=== PATIENT | female | born 1965 | race Caucasian/White ===

== ENCOUNTER 2016-11-11 19:35 | Emergency (ER) | payer BC ==
[2016-11-11 19:50] VITALS: BP 122/68
--- NOTE | 2016-11-11 19:55 | UC ---
Cardiac HPI - HPI Summary HPI Summary: Chest tightness, radiates to the right arm,started 4 days ago, comes and goes, concerned with possible panic attacks. Light headed with flushed feeling. She has not had anxiety in at least 3 years. Pain is mid chest and goes into right scapula at times. It is pressure like, not sharp. lasts for about 30 mins to several hours. she has pain currently at 3/10. max has gotten to 8-9/10. sx started 7 days ago on/off. she doesnt have any new reasons to have anxiety. She does feel like she gets sweaty/flushed with the sx. Mom was dx'd with heart disease in her 60s, brother in his 50s. She is a smoker starting at 23, now dosen to 1 pack per week. denies being on meds. denies h/o DM, HTN or lipids. denies jaw pain or associated SOB. Pain is not reproducible with palpation. She did do a lot of shoveling this week. - History of Current Complaint Chief Complaint: UCChestPain Stated Complaint: CHEST PAIN Time Seen by Provider: 11/11/16 19:38 - Allergy/Home Medications Allergies/Adverse Reactions: Allergies Allergy/AdvReac Type Severity Reaction Status Date / Time No Known Allergies Allergy Verified 11/11/16 19:50 PMH/Surg Hx/FS Hx/Imm Hx Previously Healthy: Yes - Surgical History Surgical History: Yes Surgery Procedure, Year, and Place: 1986 & 1989 CSECTIONS X , [place]. 1993 REPLACED CHIPPED DISC IN NECK WITH PORTION OF HIP BONE, [place]. [place] [facility] [place] for basal cell. fx wrist - Family History Known Family History: Positive: Cardiac Disease - Mom in 60s, brother in 50s. - Social History Alcohol Use: Weekly Alcohol Amount: WEEKENDS Substance Use Type: None Smoking Status (MU): Light Every Day Tobacco Smoker Type: Cigarettes Amount Used/How Often: 2 cigarettes daily Length of Time of Smoking/Using Tobacco: 2 YEARS Have You Smoked in the Last Year: Yes Review of Systems Constitutional: Negative Skin: Negative Eyes: Negative ENT: Negative Respiratory: Negative Cardiovascular: Chest Pain Gastrointestinal: Negative Genitourinary: Negative Motor: Negative Neurovascular: Negative Musculoskeletal: Negative Neurological: Negative Psychological: Negative All Other Systems Reviewed And Are Negative: Yes Physical Exam Triage Information Reviewed: Yes Appearance: Well-Appearing, No Pain Distress - she is holding her hand over her chest wall several times during the encounter., Well-Nourished - does not appear to be anxious. Vital Signs: Initial Vital Signs Temp 98.7 F 11/11/16 19:40 Pulse 75 11/11/16 19:40 Resp 16 11/11/16 19:40 BP 122/68 11/11/16 19:40 Pulse Ox 99 11/11/16 19:40 Vital Signs Reviewed: Yes Eye Exam: Normal ENT Exam: Normal ENT: Positive: Pharynx normal, TMs normal. Negative: Pharyngeal erythema, Nasal drainage, Tonsillar swelling, Tonsillar exudate Dental Exam: Normal Neck exam: Normal Neck: Positive: Supple, Nontender, No Lymphadenopathy Respiratory Exam: Normal Respiratory: Positive: Lungs clear, Normal breath sounds, No respiratory distress, No accessory muscle use Cardiovascular Exam: Normal Cardiovascular: Positive: RRR, No Murmur, Pulses Normal, Brisk Capillary Refill , Other: - chest wall and back are not tender, pain is not reproducible. Abdominal Exam: Normal Abdomen Description: Positive: Nontender, Soft Musculoskeletal Exam: Normal Neurological Exam: Normal Psychological Exam: Normal Skin Exam: Normal - Assessment/Plan Course Of Treatment: declines ambulance and understands risks of significant cardiac event without apporpriate measures for resuscitation, permanent disability and . She understands by driving herself that she is putting others at risk if she were to have a cardiac event while driving. Her nurse friend agrees to pick hetr up from here. She is instructed to go directly to the ER and to not make any stops. She understood me well and is very agreeable with this plan. Her friend Maria Del Rosario and Maria Del Rosario's have come to pick her up to take her to the hospital. EKG - NSR. nml axis, no AV/IV changes, no ST T changes. no previous to compare. - Differential Diagnoses - Chest Pain Differential Diagnosis/HQI/PQRI: Acute WA, ACS, Angina, Aortic Aneurysm, Chest Wall, Pulmonary Embolism - Clinical Impression Provider Diagnoses: chest pain - Physician Notifications Discussed Patient Care With: Rose ACOSTA at [facility]. Discussed case and reassured that I detailed her on events of significant cardiac event and en route by refusing ambulance. Time Discussed With Above Provider: 20:05 Discharge - Discharge Plan Condition: Fair Disposition: TRANS HIGHER LVL OF CARE FAC
== END 2016-11-11 20:16 | disposition short-term general hospital (02) ==
LOC: UCCORT 19:35
DX: R07.89 Other chest pain (principal); R42 Dizziness and giddiness; F17.210 Nicotine dependence, cigarettes, uncomplicated
CPT/HCPCS: 93005; 99212; G0463

== ENCOUNTER 2016-11-19 19:21 | Emergency (ER) | payer BC ==
[2016-11-19] MEDS ORDERED: Aspirin Low Dose CHEW TAB* 81 MG PO ONE (20:06)
[2016-11-19 20:23] LABS: Hematocrit 42 % (35-47); Hemoglobin 13.9 g/dl (12.0-16.0); Mean Corpuscular HGB Conc 33 g/dl (31-36); Mean Corpuscular Hemoglobin 31 pg (27-31); Mean Corpuscular Volume 92 fL (80-97); Mean Platelet Volume 8 um3 (7.4-10.4); Red Blood Count 4.53 10^6/ul (4.0-5.4); Red Cell Distribution Width 14 % (10.5-15); White Blood Count 7.8 10^3/ul (3.5-10.8)
--- NOTE | 2016-11-19 20:25 | ED ---
Chan Ware Michael, scribed for Ray Medina MD on 11/19/16 at 2013 . HPI Chest Pain - HPI Summary HPI Summary: 51 female comes to the ED presenting with intermittent episodes of CP that started one week ago. The pt reports that she went to [facility] in [place] and her EKG was normal. The pt states that the CP worsened during the week, but she believes it might be anxiety because her daughter is in [place]. The CP is described as sharp and radiates to the LUE, left shoulder and neck. The pain is not aggravated by deep breathes, and currently the pain has slightly alleviated with Motrin. The pt also c/o diaphoresis throughout the day , and she denies fevers and coughing. She smokes one pack per week. - History of Current Complaint Chief Complaint: EDChestPainROMI Time Seen by Provider: 11/19/16 20:01 Hx Obtained From: Patient, Medical Records Onset/Duration: Started Weeks Ago, Still Present Timing: Intermittent Initial Severity: Mild Current Severity: Moderate Pain Intensity: 7 Pain Scale Used: 0-10 Numeric Chest Pain Location: Diffuse Chest Pain Radiates: Yes Chest Pain Radiates To:: Shoulder, Arm, Neck Character: Sharp/Stabbing Aggravating Factor(s): Nothing Alleviating Factor(s): OTC Meds Associated Signs and Symptoms: Positive: Chest Pain, Diaphoresis. Negative: Fever, Cough - Allergy/Home Medications Allergies/Adverse Reactions: Allergies Allergy/AdvReac Type Severity Reaction Status Date / Time No Known Allergies Allergy Verified 11/11/16 19:50 PMH/Surg Hx/FS Hx/Imm Hx Sensory History: Reports: Hx Contacts or Glasses - READING GLASSES Denies: Hx Hearing Aid Opthamlomology History: Reports: Hx Contacts or Glasses - READING GLASSES - Cancer History Cancer Type, Location and Year: basal cell on chin - Surgical History Surgery Procedure, Year, and Place: 1986 & 1989 CSECTIONS X 2, [facility] [place]. 1993 REPLACED CHIPPED DISC IN NECK WITH PORTION OF HIP BONE, [place]. 2004 BILATERAL BREAST IMPLANTS, [facility]. chin for basal cell. fx wrist Hx Anesthesia Reactions: No Infectious Disease History: No Infectious Disease History: Denies: Traveled Outside the [place] in Last 30 Days - Family History Known Family History: Positive: Cardiac Disease - Mom in 60s, brother in 50s. - Social History Occupation: Employed Full-time Lives: Alone Alcohol Use: Weekly Alcohol Amount: WEEKENDS Substance Use Type: Reports: None Smoking Status (MU): Light Every Day Tobacco Smoker Type: Cigarettes Amount Used/How Often: 2 cigarettes daily Length of Time of Smoking/Using Tobacco: 2 YEARS Have You Smoked in the Last Year: Yes Review of Systems Positive: Skin Diaphoresis. Negative: Fever Positive: Chest Pain Negative: Cough All Other Systems Reviewed And Are Negative: Yes Physical Exam Triage Information Reviewed: Yes Vital Signs On Initial Exam: Initial Vitals Temp Pulse Resp BP Pulse Ox 98.0 F 82 16 132/91 100 11/19/16 19:25 11/19/16 19:25 11/19/16 19:25 11/19/16 19:25 11/19/16 19:25 Vital Signs Reviewed: Yes Appearance: Positive: Well-Appearing, No Pain Distress - anxious Skin: Positive: Warm Head/Face: Positive: Normal Head/Face Inspection Eyes: Positive: BLANCA ENT: Positive: Hearing grossly normal Neck: Positive: Supple Respiratory/Lung Sounds: Positive: Clear to Auscultation, Breath Sounds Present Cardiovascular: Positive: RRR Abdomen Description: Positive: Nontender, Soft Bowel Sounds: Positive: Present Musculoskeletal: Positive: Strength/ROM Intact Neurological: Positive: Sensory/Motor Intact, Alert, Oriented to Person Place, Time, Normal Gait Psychiatric: Positive: Affect/Mood Appropriate Diagnostics - Vital Signs Vital Signs Temp Pulse Resp BP Pulse Ox 11/19/16 20:00 70 12 99 11/19/16 19:58 124/61 11/19/16 19:25 98.0 F 82 16 132/91 100 - Laboratory Result Diagrams: 11/19/16 20:15 11/19/16 20:15 Lab Statement: Any lab studies that have been ordered have been reviewed, and results considered in the medical decision making process. - Radiology CXR Xray Interpretation: No Acute Changes Radiology Interpretation Completed By: Radiologist - EKG EKG 1934 EKG Rhythm: Sinus Rhythm - [address] Segment: Normal Ectopy: None Re-Evaluation - Re-Evaluation First Eval Change: Improved - results d/w pt Chest Pain Course/Dx - Diagnoses Provider Diagnoses: Chest pain Discharge - Discharge Plan Condition: Stable Disposition: HOME Patient Education Materials: Chest Pain (ED) Referrals: Bakari Burdick MD [Primary Care Provider] - Additional Instructions: Please follow up with Dr. Burdick within the next week. Return to the ED if your symptoms worsen. The documentation as recorded by the Chan vaz Michael accurately reflects the service I personally performed and the decisions made by me, Ray Medina MD.
[2016-11-19 20:39] LABS: Albumin 4.2 g/dL (3.2-5.2); BUN/Creatinine Ratio 34.6 (8-20); Calcium 9.5 mg/dL (8.6-10.3); EGFR African American 95.1 (>60); Globulin 2.9 g/dL (2-4); Total Bilirubin 0.2 mg/dL (0.2-1.0); Total Protein 7.1 g/dL (6.4-8.9)
--- NOTE | 2016-11-19 20:48 | RAD ---
HISTORY: Chest pain COMPARISONS: None VIEWS: 2: Frontal dual-energy and lateral views of the chest. FINDINGS: CARDIOMEDIASTINAL SILHOUETTE: The cardiomediastinal silhouette is normal. ARMOND: The armond are normal. PLEURA: The costophrenic angles are sharp. No pleural abnormalities are noted. LUNG PARENCHYMA: The lungs are clear. ABDOMEN: The upper abdomen is clear. There is no subphrenic gas. BONES AND SOFT TISSUES: No bone or soft tissue abnormalities are noted. The patient is status post bilateral breast augmentation OTHER: None. IMPRESSION: NO ACTIVE CARDIOPULMONARY DISEASE.
[2016-11-19 21:15] VITALS: BP 105/91
== END 2016-11-19 22:00 | disposition home or self-care (01) ==
LOC: ED 19:21
DX: R07.9 Chest pain, unspecified (principal); R61 Generalized hyperhidrosis; F17.210 Nicotine dependence, cigarettes, uncomplicated
CPT/HCPCS: 36415; 71020; 80053; 83605; 84484; 85025; 93005; 99282

== ENCOUNTER 2018-01-09 09:40 | Emergency (ER) | payer BC ==
[2018-01-09 09:55] VITALS: BP 107/68
--- NOTE | 2018-01-09 10:13 | UC ---
Complaint Female HPI - HPI Summary HPI Summary: dysuria x 1 day + frequency , no fever, no chills, no flank pain - History Of Current Complaint Chief Complaint: UCGU Stated Complaint: URINARY COMPLAINT Time Seen by Provider: 01/09/18 10:06 Hx Obtained From: Patient Hx Last Menstrual Period: manuel ?: No Onset/Duration: Gradual Onset, Lasting Days - 1, Still Present Timing: Constant Severity Initially: Moderate Severity Currently: Moderate Pain Intensity: 0 Character: Burning Aggravating Factor(s): Urination Alleviating Factor(s): Nothing Associated Signs And Symptoms: Negative: Fever, Back Pain, Vaginal Bleeding/ Discharge, Vaginal Discharge, Nausea, Vomiting(# Of Episodes =), Genital Swelling, Genital Blisters, Retained Foregin Body (Specify) - Allergies/Home Medications Allergies/Adverse Reactions: Allergies Allergy/AdvReac Type Severity Reaction Status Date / Time No Known Allergies Allergy Verified 01/09/18 09:56 PMH/Surg Hx/FS Hx/Imm Hx Previously Healthy: Yes - Surgical History Surgical History: Yes Surgery Procedure, Year, and Place: 1986 & 1989 CSECTIONS X 2, [place]. 1993 REPLACED CHIPPED DISC IN NECK WITH PORTION OF HIP BONE, [place]. 2005 BILATERAL BREAST IMPLANTS, [facility]. chin for basal cell. fx wrist - Family History Known Family History: Positive: None, Cardiac Disease - Mom in 60s, brother in 50s. - Social History Alcohol Use: Weekly Alcohol Amount: WEEKENDS Substance Use Type: None Smoking Status (MU): Light Every Day Tobacco Smoker Type: Cigarettes Amount Used/How Often: 2 cigarettes daily Length of Time of Smoking/Using Tobacco: 2 YEARS Have You Smoked in the Last Year: Yes Review of Systems Constitutional: Negative Skin: Negative Eyes: Negative ENT: Negative Respiratory: Negative Cardiovascular: Negative Genitourinary: Dysuria, Frequency, Urgency Motor: Negative Neurovascular: Negative Is Patient Immunocompromised?: No All Other Systems Reviewed And Are Negative: Yes Physical Exam Triage Information Reviewed: Yes Appearance: Well-Appearing, No Pain Distress, Well-Nourished Vital Signs: Initial Vital Signs Temp 98.3 F 01/09/18 09:50 Pulse 82 01/09/18 09:50 Resp 18 01/09/18 09:50 BP 107/68 01/09/18 09:50 Pulse Ox 100 01/09/18 09:50 Vital Signs Reviewed: Yes Eye Exam: Normal Eyes: Positive: Conjunctiva Clear ENT: Positive: Normal ENT inspection, Hearing grossly normal, Pharynx normal Neck: Positive: Supple, Nontender, No Lymphadenopathy Respiratory: Positive: Chest non-tender, Lungs clear, Normal breath sounds Cardiovascular: Positive: RRR, No Murmur, Pulses Normal Abdomen Description: Positive: Nontender, Soft. Negative: CVA Tenderness (R), CVA Tenderness (L), Distended, Guarding Bowel Sounds: Positive: Present Skin Exam: Normal Complaint Female Dx - Differential Dx/Diagnosis Provider Diagnoses: UTI Discharge - Sign-Out/Discharge Documenting (check all that apply): Discharge/Admit/Transfer - Discharge Plan Condition: Stable Disposition: HOME Prescriptions: Fluconazole [Diflucan 150 MG (NF)] 150 mg PO ONCE #1 tab Phenazopyridine 200 mg (NF) [Pyridium 200 MG tab *] 200 mg PO TID #6 tab Sulfamethox/Trimethoprim DS* [Bactrim DS 800/160 TAB*] 1 tab PO BID #14 tab Patient Education Materials: Urinary Tract Infection in Women (DC) Referrals: Bakari Burdick MD [Primary Care Provider] - If Needed - Billing Disposition and Condition Condition: STABLE Disposition: HOME
--- NOTE | 2018-01-11 07:19 | UC ---
- Progress Note Progress Note: urine + citrobacter on Bactrim await sensitivity - no change 01/11/2018 7:20 lj Discharge - Sign-Out/Discharge Documenting (check all that apply): Post-Discharge Follow Up - Discharge Plan Condition: Stable Disposition: HOME Prescriptions: Fluconazole [Diflucan 150 MG (NF)] 150 mg PO ONCE #1 tab Phenazopyridine 200 mg (NF) [Pyridium 200 MG tab *] 200 mg PO TID #6 tab Sulfamethox/Trimethoprim DS* [Bactrim DS 800/160 TAB*] 1 tab PO BID #14 tab Patient Education Materials: Urinary Tract Infection in Women (DC) Referrals: Gennaro ROSALES,Bakari [Primary Care Provider] - If Needed - Billing Disposition and Condition Condition: STABLE Disposition: HOME
== END 2018-01-09 10:14 | disposition home or self-care (01) ==
LOC: UCCORT 09:40
DX: N39.0 Urinary tract infection, site not specified (principal); B96.89 Other specified bacterial agents as the cause of diseases classified elsewhere; F17.210 Nicotine dependence, cigarettes, uncomplicated
CPT/HCPCS: 81003; 87077; 87086; 87186; 99212; G0463

== ENCOUNTER 2018-04-08 10:46 | Emergency (ER) | payer BC ==
[2018-04-08 11:04] VITALS: BP 111/62
--- NOTE | 2018-04-08 11:36 | UC ---
UC General HPI - HPI Summary HPI Summary: Pt presents with c/o generalized malaise, diarrhea X 3 days that has since resolved., low back pain, that has since resolved and generalized fatigue and "feeling terrible". Pt traveled out of state 2 weeks ago and states she did not "eat her usual diet" and did not feel well when she returned home. Denies recent weight loss or night sweats. - History of Current Complaint Chief Complaint: UCBackPain Stated Complaint: LOWER BACK PAIN Time Seen by Provider: 04/08/18 11:03 Hx Obtained From: Patient Hx Last Menstrual Period: manuel Onset/Duration: Gradual Onset, Lasting Days, Resolved - diarrhea resolved Timing: Constant Onset Severity: Moderate Current Severity: Mild Pain Intensity: 3 Associated Signs & Symptoms: Positive: Back Pain, Diarrhea, Other - fatigue - Allergy/Home Medications Allergies/Adverse Reactions: Allergies Allergy/AdvReac Type Severity Reaction Status Date / Time No Known Allergies Allergy Verified 04/08/18 11:00 Home Medications: Home Medications Ibuprofen TAB* [Advil TAB*] 400 mg PO Q6H PRN 04/08/18 [History Confirmed ] PMH/Surg Hx/FS Hx/Imm Hx Previously Healthy: Yes - Surgical History Surgical History: Yes Surgery Procedure, Year, and Place: 1986 & 1989 CSECTIONS X 2, [place]. 1993 REPLACED CHIPPED DISC IN NECK WITH PORTION OF HIP BONE, [place]. 2004 BILATERAL BREAST IMPLANTS, [facility]. chin for basal cell. fx wrist - Family History Known Family History: Positive: Cardiac Disease - Mom in 60s, brother in 50s. - Social History Occupation: Employed Full-time Lives: Alone Alcohol Use: Weekly Alcohol Amount: WEEKENDS Substance Use Type: None Smoking Status (MU): Light Every Day Tobacco Smoker Type: Cigarettes Amount Used/How Often: 2-3 cigarettes/weekly Length of Time of Smoking/Using Tobacco: On and Off Since 2007 Have You Smoked in the Last Year: Yes Review of Systems Constitutional: Fatigue Skin: Negative Eyes: Negative ENT: Negative Respiratory: Negative Cardiovascular: Negative Gastrointestinal: Diarrhea - resolved Genitourinary: Negative Motor: Negative Neurovascular: Negative Musculoskeletal: Myalgia Neurological: Negative Psychological: Negative Is Patient Immunocompromised?: No All Other Systems Reviewed And Are Negative: Yes Physical Exam Triage Information Reviewed: Yes Appearance: Well-Appearing Vital Signs: Initial Vital Signs Temp 98.1 F 04/08/18 10:57 Pulse 72 04/08/18 10:57 Resp 16 04/08/18 10:57 BP 111/62 04/08/18 10:57 Pulse Ox 99 04/08/18 10:57 Vital Signs Reviewed: Yes Eye Exam: Normal ENT Exam: Normal Dental Exam: Normal Neck exam: Normal Respiratory Exam: Normal Cardiovascular Exam: Normal Abdominal Exam: Normal Abdomen Description: Positive: Nontender, No Organomegaly, Soft Musculoskeletal Exam: Normal Neurological Exam: Normal Psychological Exam: Normal Skin Exam: Normal Course/Dx - Course Course Of Treatment: I discussed with the pt the need to follow up with her PCP or return to clinic if symptoms do not improve or resolve. Pt verbalized understanding and agreed to plan of care. - Differential Dx - Multi-Symptom Differential Diagnoses: Urinary Tract Infection Provider Diagnoses: viral syndrome. fatigue Discharge - Sign-Out/Discharge Documenting (check all that apply): Patient Departure - Discharge Plan Condition: Stable Disposition: HOME Patient Education Materials: Viral Syndrome (ED), Fatigue (ED) Referrals: Bakari Burdick MD [Primary Care Provider] - As Soon As Possible - Billing Disposition and Condition Condition: STABLE Disposition: Home
== END 2018-04-08 11:32 | disposition home or self-care (01) ==
LOC: UCCORT 10:46
DX: B34.9 Viral infection, unspecified (principal); R53.83 Other fatigue; F17.210 Nicotine dependence, cigarettes, uncomplicated
CPT/HCPCS: 81003; 87086; 99211; G0463

== ENCOUNTER 2018-06-13 17:37 | Emergency (ER) | payer BC ==
[2018-06-13 18:31] VITALS: BP 136/89
--- NOTE | 2018-06-13 18:54 | UC ---
Skin Complaint HPI - HPI Summary HPI Summary: 52 y/o female presents to the urgent care c/o c/o a red, itchy rash on her abdomen and back since 06/11/18. She states that she feels the rash is now going down both arms. Denies fever or any new symptoms. She also denies any new soaps, lotions, medications or foods. - History of Current Complaint Chief Complaint: UCRas Time Seen by Provider: 06/13/18 18:52 Stated Complaint: SKIN COMPLAINT Hx Obtained From: Patient Hx Last Menstrual Period: manuel Onset/Duration: Gradual Onset, Lasting Days - 3 days, Still Present, Worse Since - today spreading to B/L arms Skin Exposure Onset/Duration: Days Ago - 3 days Timing: Constant Onset Severity: Mild Current Severity: Moderate Pain Intensity: 0 Pain Scale Used: 0-10 Numeric Location: Discrete - abdomen , back and B/L arms Character: Pruritus, Redness Aggravating Factor(s): Touch Alleviating Factor(s): OTC Meds - benadryl Associated Signs & Symptoms: Positive: Rash. Negative: Difficulty Breathing, Fever, Chills, Hoarseness, Throat Tightening, Drainage, Tenderness Related History: Possible Reaction to: Environmental Exposure - Allergy/Home Medications Allergies/Adverse Reactions: Allergies Allergy/AdvReac Type Severity Reaction Status Date / Time No Known Allergies Allergy Verified 06/13/18 18:31 Home Medications: Home Medications diphenhydrAMINE HCl [Benadryl Allergy 25 MG CAP] 50 mg PO BID PRN 06/13/18 [ History Confirmed 06/13/18] Review of Systems Constitutional: Negative Skin: Rash - red rash in the abdomen, back and B/L arms w/ itchiness Eyes: Negative ENT: Negative Respiratory: Negative Cardiovascular: Negative Gastrointestinal: Negative Genitourinary: Negative Motor: Negative Neurovascular: Negative Musculoskeletal: Negative Neurological: Negative Psychological: Negative Is Patient Immunocompromised?: No All Other Systems Reviewed And Are Negative: Yes PMH/Surg Hx/FS Hx/Imm Hx Previously Healthy: Yes - Pt denies PMHX - Surgical History Surgical History: Yes Surgery Procedure, Year, and Place: 1986 & 1989 CSECTIONS X 2, [place]. 1993 REPLACED CHIPPED DISC IN NECK WITH PORTION OF HIP BONE, [place]. 2005 BILATERAL BREAST IMPLANTS, [facility]. chin for basal cell. fx wrist - Family History Known Family History: Positive: Cardiac Disease - Mom in 60s, brother in 50s., Hypertension, Diabetes - Social History Occupation: Employed Full-time Lives: With Family Alcohol Use: Weekly Alcohol Amount: WEEKENDS Substance Use Type: None Smoking Status (MU): Light Every Day Tobacco Smoker Type: Cigarettes Amount Used/How Often: 1 week Length of Time of Smoking/Using Tobacco: since age 28 Have You Smoked in the Last Year: Yes Physical Exam - Summary Physical Exam Summary: Vital Signs Reviewed: Yes General: well developed, well nourished female sitting in the examining table w/ o any apparent distress. Eyes: Positive: Conjunctiva Clear - PERRLA, EOMI ENT: Positive: Normal ENT inspection, Hearing grossly normal, Pharynx normal, TMs normal Neck: Positive: Supple, Nontender, No Lymphadenopathy Respiratory: Positive: Chest nontender, Lungs clear, Normal breath sounds Cardiovascular: Positive: RRR, No Murmur, Pulses Normal Abdomen Description: Positive: Nontender, No Organomegaly, Soft. Negative: CVA Tenderness (R), CVA Tenderness (L) Bowel Sounds: Positive: Present Musculoskeletal: Positive: Strength Intact, ROM Intact, No Edema Neurological Exam: Normal Psychological Exam: Normal Skin: Positive: rashes - Scattered discrete erythemathous maculopapular eruption in the abdomen, back and B/L arms, non tender to palpation, no swelling , w/ indistinct borders, no warm to touch, Triage Information Reviewed: Yes Vital Signs: Initial Vital Signs Temp 98.3 F 06/13/18 18:22 Pulse 78 06/13/18 18:22 Resp 16 06/13/18 18:22 BP 136/89 06/13/18 18:22 Pulse Ox 99 06/13/18 18:22 Course/Dx - Differential Diagnoses - Skin Complaint Differential Diagnoses: Abscess, Allergic Reaction, Contact Dermatitis, Local Allergic Reaction, Poison Aliya, Poison Smilax - Diagnoses Provider Diagnoses: 1- Contac dermatitis. 2- Pruritus Discharge - Sign-Out/Discharge Documenting (check all that apply): Patient Departure - D/C home All imaging exams completed and their final reports reviewed: No Studies - Discharge Plan Condition: Stable Disposition: HOME Prescriptions: Calamine/Pramoxine LOTION* [Caladryl LOTION*] 1 applic .SEE ORDER BID #1 btl Hydrocortisone 1% CREAM* [Hytone Cream 1%*] 1 applic TOPICAL BID #1 tube predniSONE TAB* [Deltasone 20 MG TAB*] 20 mg PO DAILY #8 tab Patient Education Materials: Contact Dermatitis (ED) Referrals: Bakari Burdick MD [Primary Care Provider] - 2 Days Mary Jane Laurent [Medical Doctor] - If Needed Additional Instructions: 1-Please Start taking Prednisone PO taper dose starting tomorrow. first loading dose given today at the clinic. 2- Continue taking Benadryl PO to alleviate itchiness. Apply topical cream as directed. Avoid exposure to the sun. 3-If symptoms do not improve or worsen please f/u with your PCP or Web Applications Architect in 2-3 days for further evaluation and treatment. 4- If symptoms worsen and you develop SOB or difficulty breathing please go immediately to the ER for further management. - Billing Disposition and Condition Condition: STABLE Disposition: Home
[2018-06-13] MEDS ORDERED: predniSONE TAB* 20 MG PO ONE (19:07)
== END 2018-06-13 19:35 | disposition home or self-care (01) ==
LOC: UCCORT 17:37
DX: L29.9 Pruritus, unspecified (principal); L25.9 Unspecified contact dermatitis, unspecified cause
CPT/HCPCS: 99212; G0463; J7512

== ENCOUNTER 2018-06-14 10:30 | Emergency (ER) | payer BC ==
[2018-06-14 11:22] VITALS: BP 108/66
--- NOTE | 2018-06-14 11:55 | UC ---
Throat Pain/Nasal Dougie HPI - HPI Summary HPI Summary: Pt c/o sudden onset of sore throat, nasa congestion and generalized malaise. Pt states that she woke this morning with PND and "extremely sore throat". Pt was seen here last night for sudden on set of urticaria and began prednisone last night. - History of Current Complaint Chief Complaint: UCRespiratory Stated Complaint: RECHECK SORE THROAT, CONGESTION Time Seen by Provider: 06/14/18 11:24 Hx Obtained From: Patient Hx Last Menstrual Period: manuel ?: No Onset/Duration: Sudden Onset, Lasting Hours, Still Present Severity: Moderate Pain Intensity: 3 Cough: None Associated Signs & Symptoms: Positive: Dysphagia - Epiglottits Risk Factors Epiglottis Risk Factors: Sudden Onset - Allergies/Home Medications Allergies/Adverse Reactions: Allergies Allergy/AdvReac Type Severity Reaction Status Date / Time No Known Allergies Allergy Verified 06/14/18 11:15 PMH/Surg Hx/FS Hx/Imm Hx Previously Healthy: Yes - Surgical History Surgical History: Yes Surgery Procedure, Year, and Place: 1986 & 1989 CSECTIONS X 2, [place]. 1993 REPLACED CHIPPED DISC IN NECK WITH PORTION OF HIP BONE, [place]. 2004 BILATERAL BREAST IMPLANTS, [facility]. chin for basal cell. fx wrist - Family History Known Family History: Positive: Cardiac Disease - Mom in 60s, brother in 50s., Hypertension, Diabetes - Social History Occupation: Employed Full-time Lives: With Family Alcohol Use: Weekly Alcohol Amount: WEEKENDS Substance Use Type: None Smoking Status (MU): Light Every Day Tobacco Smoker Type: Cigarettes Amount Used/How Often: 1 week Length of Time of Smoking/Using Tobacco: since age 28 Have You Smoked in the Last Year: Yes Review of Systems Constitutional: Fatigue Skin: Negative Eyes: Negative ENT: Sore Throat Respiratory: Negative Cardiovascular: Negative Gastrointestinal: Negative Genitourinary: Negative Motor: Negative Neurovascular: Negative Musculoskeletal: Negative Neurological: Negative Psychological: Negative Is Patient Immunocompromised?: No All Other Systems Reviewed And Are Negative: Yes Physical Exam Triage Information Reviewed: Yes Appearance: Ill-Appearing Vital Signs: Initial Vital Signs Temp 98.8 F 06/14/18 11:17 Pulse 70 06/14/18 11:17 Resp 18 06/14/18 11:17 BP 108/66 06/14/18 11:17 Pulse Ox 99 06/14/18 11:17 Vital Signs Reviewed: Yes Eye Exam: Normal ENT: Positive: Pharyngeal erythema, Nasal drainage, Tonsillar swelling Dental Exam: Normal Neck exam: Normal Respiratory Exam: Normal Cardiovascular Exam: Normal Musculoskeletal Exam: Normal Neurological Exam: Normal Psychological Exam: Normal Skin Exam: Normal Throat Pain/Nasal Course/Dx - Differential Dx/Diagnosis Differential Diagnosis/HQI/PQRI: Laryngitis, Pharyngitis, Tonsillitis, URI Provider Diagnoses: tonsillitis Discharge - Sign-Out/Discharge Documenting (check all that apply): Patient Departure All imaging exams completed and their final reports reviewed: No Studies - Discharge Plan Condition: Stable Disposition: HOME Prescriptions: Amoxicillin PO (*) [Amoxicillin 500 MG CAP*] 500 mg PO Q12H #20 cap Fluconazole 100 MG TAB* [Diflucan 100 MG TAB*] 100 mg PO DAILY #2 tab Patient Education Materials: Pharyngitis (ED) Referrals: Bakari Burdick MD [Primary Care Provider] - If Needed - Billing Disposition and Condition Condition: STABLE Disposition: Home
== END 2018-06-14 12:01 | disposition home or self-care (01) ==
LOC: UCCORT 10:30
DX: J03.90 Acute tonsillitis, unspecified (principal); F17.210 Nicotine dependence, cigarettes, uncomplicated; Z79.52 Long term (current) use of systemic steroids; Z85.828 Personal history of other malignant neoplasm of skin
CPT/HCPCS: 87651; 99212; G0463

== ENCOUNTER 2018-07-14 09:43 | Emergency (ER) | payer BC ==
[2018-07-14 10:13] VITALS: BP 125/66
--- NOTE | 2018-07-14 10:35 | UC ---
Throat Pain/Nasal Dougie HPI - HPI Summary HPI Summary: 53-year-old female presents with approximately 2 week history of sinus congestion and pressure, nasal congestion, and occasionally productive cough for yellow sputum. States cough is worse at night when she lies down. Associated with some bilateral ear fullness. She was evaluated at this facility on 06/14/2018 with pharyngitis and URI type symptoms and started on a ten-day course of amoxicillin. States her symptoms did improve but approximately 3 days after completing her antibiotic started with current symptoms. Denies fever, chills, sore throat, chest pain, shortness of breath, abdominal pain, nausea, or vomiting. Quit smoking 3 weeks ago. States previous 1 pack per week smoker. - History of Current Complaint Chief Complaint: UCGeneralIllness Stated Complaint: COUGH/CONGESTION Time Seen by Provider: 07/14/18 10:34 Hx Obtained From: Patient Hx Last Menstrual Period: manuel Onset/Duration: Gradual Onset, Lasting Weeks - 2 Pain Intensity: 0 Cough: Productive Associated Signs & Symptoms: Positive: Sinus Discomfort, Nasal Discharge. Negative: Dysphagia, Wheezing, Hoarseness, Fever, Vomiting, Rash - Allergies/Home Medications Allergies/Adverse Reactions: Allergies Allergy/AdvReac Type Severity Reaction Status Date / Time No Known Allergies Allergy Verified 07/14/18 10:13 PMH/Surg Hx/FS Hx/Imm Hx Previously Healthy: Yes Cancer History: Other - Basal cell carcinoma - Surgical History Surgical History: Yes Surgery Procedure, Year, and Place: 1986 & 1989 CSECTIONS X , [place]. 1993 REPLACED CHIPPED DISC IN NECK WITH PORTION OF HIP BONE, [place]. 2005 BILATERAL BREAST IMPLANTS, [facility]. chin for basal cell. fx wrist - Family History Known Family History: Positive: Cardiac Disease - Mom in 60s, brother in 50s., Hypertension, Diabetes - Social History Occupation: Employed Full-time Alcohol Use: Weekly Alcohol Amount: WEEKENDS Substance Use Type: None Smoking Status (MU): Former Smoker Type: Cigarettes Amount Used/How Often: 1 week Length of Time of Smoking/Using Tobacco: since age 28 Have You Smoked in the Last Year: Yes Review of Systems All Other Systems Reviewed And Are Negative: Yes Constitutional: Negative: Fever, Chills Skin: Negative: Rash Eyes: Negative: Drainage, Eye Redness ENT: Positive: Nasal Discharge, Sinus Congestion, Sinus Pain/Tenderness. Negative: Sore Throat, Ear Ache Respiratory: Positive: Cough. Negative: Shortness Of Breath Cardiovascular: Negative: Palpitations, Chest Pain Gastrointestinal: Negative: Abdominal Pain, Vomiting, Nausea Is Patient Immunocompromised?: No Physical Exam Triage Information Reviewed: Yes Appearance: Well-Appearing, No Pain Distress, Well-Nourished Vital Signs: Initial Vital Signs Temp 99.1 F 07/14/18 09:59 Pulse 74 07/14/18 09:59 Resp 18 07/14/18 09:59 BP 125/66 07/14/18 09:59 Pulse Ox 98 07/14/18 09:59 Vital Signs Reviewed: Yes Eyes: Positive: Conjunctiva Clear. Negative: Discharge ENT: Positive: Pharyngeal erythema - Mild with cobblestoning, Nasal congestion, Nasal drainage, TMs normal, Sinus tenderness - Maxillary, Uvula midline. Negative: Tonsillar swelling, Tonsillar exudate, Trismus Neck: Positive: Supple, Nontender, No Lymphadenopathy Respiratory: Positive: Chest non-tender, Lungs clear, Normal breath sounds, No respiratory distress Cardiovascular: Positive: RRR, No Murmur, Pulses Normal, Brisk Capillary Refill Abdomen Description: Positive: Nontender, No Organomegaly, Soft. Negative: Distended, Guarding Neurological: Positive: Alert Skin Exam: Normal Throat Pain/Nasal Course/Dx - Course Course Of Treatment: 53-year-old female presents with approximately 2 week history of sinus congestion and pressure, nasal congestion, and occasionally productive cough for yellow sputum. States cough is worse at night when she lies down. Associated with some bilateral ear fullness. She was evaluated at this facility on 06/14/2018 with pharyngitis and URI type symptoms and started on a ten-day course of amoxicillin. States her symptoms did improve but approximately 3 days after completing her antibiotic started with current symptoms. Afebrile. Exam consistent with an acute maxillary sinusitis. Will treat with course of Augmentin 875 mg BID x 10 days as well as symptomatic treatment. She is to follow up with PCP in 7 days if symptoms persist. Warning symptoms reviewed. Verbalizes understanding and agrees with POC. - Differential Dx/Diagnosis Differential Diagnosis/HQI/PQRI: Influenza, Sinusitis, URI Provider Diagnoses: Acute maxillary sinusitis Discharge - Sign-Out/Discharge Documenting (check all that apply): Patient Departure All imaging exams completed and their final reports reviewed: No Studies - Discharge Plan Condition: Stable Disposition: HOME Prescriptions: Amoxicillin/Clavulanate TAB* [Augmentin TAB 875*] 875 mg PO BID #20 tab Patient Education Materials: Sinusitis (ED) Referrals: Bakari Burdick MD [Primary Care Provider] - 7 Days (If symptoms persist) Additional Instructions: Your history and exam are consistent with an acute sinus infection. Considering the reoccurence of your symptoms and duration of symptoms we will treat you with an antibiotic. Start Augmentin 1 tab twice a day for 10 days. Be sure to finish the entire course even if you are feeling better. Use a saline rinse kit such as Neti Pot or NeilMed at least twice a day. Start fluticasone nasal spray 2 sprays each nostril once a day. Take an over the counter decongestant such as Sudafed according to directions as needed for nasal congestion. Use Tessalon Perles 1 cap every 8 hours as needed for cough. Take acetaminophen (Tylenol) or ibuprofen (Advil, Motrin) according to directions as needed for fever or pain. Follow-up with your primary care provider in 7 days if symptoms persist. Seek immediate medical attention if you have a persistent fever greater than 100.5 F despite taking acetaminophen or ibuprofen, have chest pain, difficulty breathing, or have any worsening of symptoms. - Billing Disposition and Condition Condition: STABLE Disposition: Home - Attestation Statements Provider Attestation: I was available for consult. This patient was seen by the [facility]. The patient was not presented to, seen by, or examined by me. -Kim
== END 2018-07-14 10:54 | disposition home or self-care (01) ==
LOC: UCCORT 09:43
DX: J01.00 Acute maxillary sinusitis, unspecified (principal); Z87.891 Personal history of nicotine dependence; Z85.828 Personal history of other malignant neoplasm of skin
CPT/HCPCS: 99211; G0463